=== PATIENT | male | born 2005 | race Caucasian/White ===

== ENCOUNTER → 2025-05-15 10:29 | Outpatient (REF) | payer OTHER, SELFPAY ==
[2025-05-15 11:57] LABS: Hematocrit 42.4 % (39.0-52.0); Hemoglobin 14.9 g/dL (13.0-18.0); Mean Corp Hgb Conc. 35.1 g/dL (33.0-37.0); Mean Corpuscular Volume 91.8 fL (80.0-94.0); Platelet Count 224 10^3/uL (130-400); Red Cell Dist. Width 12.1 % (11.5-14.5)
[2025-05-15 12:55] LABS: Vitamin D, 25-OH*** 92.4 ng/mL (30-80)
[2025-05-15 15:46] LABS: Folate 13.6 ng/ml (2.76-20); Vitamin B12 952 pg/ml (239-931)
== END ==
LOC: REG 10:29
PROVIDERS: ATTENDING PHYSICIAN Pediatrics
DX: Z09 Encounter for follow-up examination after completed treatment for conditions other than malignant neoplasm (principal)
CPT/HCPCS: 36415; 82306; 82607; 82670; 82746; 84403; 85027